=== PATIENT | female | born 1940 | race Hispanic/Latino ===

== ENCOUNTER 2023-06-08 09:13 | Day surgery (SDC) | payer OTHER, BC ==
[2023-06-06 16:33] LABS: Potassium 3.9 mEq/L (3.5-5.1)
--- NOTE | 2023-06-07 12:58 | EKG ---
Test Date: 2023-06-06 Test Time: 15:57:00 Computer Console Operator: DAMIAN MEASUREMENT RESULTS: Intervals: Rate: 62 OR: 156 QRSD: 82 QT: 464 QTc: 470 [place]: P: 53 OR: 156 QRS: -17 T: 43 INTERPRETIVE STATEMENTS: Normal sinus rhythm Cannot rule out Anterior infarct, age undetermined Abnormal ECG No previous ECG available for comparison Electronically Signed On 06-07-23 12:56:04 CDT by Josh Sam
[2023-06-08] MEDS ORDERED: LIDOCAINE 1% MPF 30 ML VIAL ONE (09:39)
[2023-06-08] MEDS ORDERED: propofoL 200 MG/20 ML VIAL IV ONE (09:39)
[2023-06-08] MEDS ORDERED: Ringers Lactate 1,000 ML IV ONE (09:41)
[2023-06-08 12:02] VITALS: BP 116/40; TEMP 97.4; O2SAT 98
== END 2023-06-08 11:45 | disposition home or self-care (01) ==
LOC: OR 09:13
PROVIDERS: ATTEND Surgery
PROC: 0DBF8ZX Excision of Right Large Intestine, Via Natural or Artificial Opening Endoscopic, Diagnostic (ICD-10-PCS; principal; 2023-06-08 11:00)
DX: Z12.11 Encounter for screening for malignant neoplasm of colon (principal); K64.8 Other hemorrhoids; K63.89 Other specified diseases of intestine; R19.7 Diarrhea, unspecified; Z90.49 Acquired absence of other specified parts of digestive tract
CPT/HCPCS: 93005; 80048; 36415; 88305; 45380; J2704; J2001; J7120